=== PATIENT | male | born 1955 | race Caucasian/White ===

== ENCOUNTER 2018-05-19 18:38 | Emergency (ER) | payer OTHER ==
[~2018-05-19] VITALS: Ht 172.7 cm; Wt 86.2 kg
[~2018-05-19 18:38] MED LIST: CIPRO 500MG TA500 MG PO; ECOTRIN81 MG PO; FLAG500 PO; METAMUCIL1 PAC PO; NEXIUM 40MG40 MG PO; NEXIUM20 M1 PO; NORCO 325 MG-51 TAB PO; PHILLIPS' COLO1 EACH PO; PRAVASTATIN SOD20 M1 PO; TAMSULOSIN HCL0.4 M1 PO; TRAMADOL HCL50 M1 PO; VICODIN5-300 PO; ZORVOLEX35 MG PO
--- NOTE | 2018-05-19 20:07 | ED CARDIAC/CP/PALPITATIONS ---
History of Present Illness General Chief Complaint: Chest Pain Stated Complaint: CHEST PAIN Source: patient Exam Limitations: no limitations Vital Signs & Intake/Output Vital Signs & Intake/Output Vital Signs Date Time Temp Pulse Resp B/P B/P Pulse O2 O2 Flow FiO2 Mean Ox Delivery Rate 05/20 0041 97.0 61 18 123/70 98 Room Air 05/19 2236 96.5 64 18 138/78 98 Room Air 05/19 2038 98.5 64 18 154/78 99 05/19 1848 97.8 65 18 153/66 98 Room Air ED Intake and Output 05/20 0000 05/19 1200 Intake Total 0 Output Total Balance 0 Intake, Oral 0 Patient 190 lb Weight Weight Reported by Patient Measurement Method Allergies Coded Allergies: NSAIDS (Non-Steroidal Anti-Inflamma (BLEEDING 07/08/16) Reconcile Medications Aspirin (Ecotrin) 81 MG ECT 1 TAB PO DAILY HEART (Reported) Esomeprazole Magnesium (Nexium) 20 MG CAPSULE.DR 2 CAP PO DAILY ACID REFLUX ( Reported) L Gasseri/B Bifidum/B Longum ([place] acquired by [employer]/[place] Capsule) 1 EACH CAPSULE 1 CAP PO DAILY PROBIOTIC (Reported) Lisinopril 10 MG TABLET 10 MG PO DAILY HTN (Reported) Pravastatin Sodium 20 MG TAB 1 TAB PO DAILY CHOLESTEROL (Reported) Pravastatin Sodium 20 MG TABLET 20 MG PO DAILY HIGH CHOLESTEROL (Reported) Psyllium Hydrophylic Muciloid (Metamucil Packet) (Unknown Strength) POWD.PACK (Unknown Dose) PO DAILY CHOLESTEROL & REGULARITY (Reported) Tamsulosin HCl 0.4 MG CAP.ER.24H 1 CAP PO QHS PROSTATE (Reported) Tramadol HCl 50 MG TABLET 1-2 TAB PO Q6P PRN pain Triage Note: PT STATES HE HAS CHEST DISCOMFORT THAT STARTED 2 DAYS AGO. PT DENIES ANY INJURY. PT DENIES RADIATION OR SOB. Triage Nurses Notes Reviewed? yes Onset: Gradual Duration: day(s): Timing: recent history Quality/Severity: mild, moderate Location: epigastric, lower mid chest Radiation: no radiation Activities at Onset: none HPI: 62 yo gentleman presents with 2 days of mid epigastric and lower central chest discomfort, worse at night. "It feels like reflux." He is now feeling better. Past History Travel History Traveled to [place] past 21 day No Medical History Any Pertinent Medical History? 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 No Review of Systems Review of Systems Constitutional: Reports: no symptoms. EENTM: Reports: no symptoms. Respiratory: Reports: no symptoms. Cardiovascular: Reports: no symptoms. GI: Reports: no symptoms. Genitourinary: Reports: no symptoms. Musculoskeletal: Reports: no symptoms. Skin: Reports: no symptoms. Neurological/Psychological: Reports: no symptoms. Hematologic/Endocrine: Reports: no symptoms. Immunologic/Allergic: Reports: no symptoms. All Other Systems: Reviewed and Negative Physical Exam Physical Exam General Appearance: well developed/nourished, no apparent distress Head: atraumatic, normal appearance Eyes: Bilateral: normal appearance. Ears, Nose, Throat: normal pharynx, normal ENT inspection Neck: normal inspection, supple, full range of motion Respiratory: normal breath sounds, no respiratory distress, right sided parasternal chest wall tenderness to palpation. Cardiovascular: regular rate/rhythm Gastrointestinal: normal bowel sounds, soft, non-tender Back: normal inspection, normal range of motion Extremities: normal inspection Neurologic/Psych: no motor/sensory deficits, awake, alert, oriented x 3 Skin: intact, normal color, warm/dry Core Measures ACS in differential dx? No CVA/TIA Diagnosis No Sepsis Present: No Sepsis Focused Exam Completed? No Progress Differential Diagnosis: gerd, vs other, Plan of Care: Orders Procedure Date/time Status TROPONIN LEVEL 05/19 2340 Complete EKG 05/19 2340 Active TROPONIN LEVEL 05/19 1924 Complete LIPASE 05/19 1924 Complete HEPATIC FUNCTION PANEL 05/19 1924 Complete D-DIMER 05/19 1924 Complete CBC WITHOUT DIFFERENTIAL 05/19 1924 Complete BASIC METABOLIC PANEL 05/19 1924 Complete AMYLASE 05/19 1924 Complete EKG 05/19 183 Active Laboratory Tests 05/19/18 2333: Troponin I < 0.01 05/19/18 2040: Anion Gap 12, Estimated GFR > 60, BUN/Creatinine Ratio 12.7, Glucose 101 H, Calcium 9.7, Total Bilirubin 0.4, Direct Bilirubin 0.2, AST 16 L, ALT 24, Alkaline Phosphatase 69, Troponin I < 0.01, Total Protein 7.3, Albumin 4.3, Amylase 47, Lipase 143, CBC w Diff NO MAN DIFF REQ, RBC 5.06, MCV 87.8, MCH 29.3 , MCHC 33.4, RDW 13.1, MPV 7.7, Gran % 73.4, Lymphocytes % 18.4 L, Monocytes % 6.6, Eosinophils % 1.3, Basophils % 0.3, Absolute Granulocytes 6.6 H, Absolute Lymphocytes 1.7, Absolute Monocytes 0.6, Absolute Eosinophils 0.1, Absolute Basophils 0 05/19/182024: D-Dimer High Sensitivty < 200 Diagnostic Imaging: Viewed by Me: Radiology Read. Discussed w/RAD: Radiology Read. CXR Impression: no acute abnormality, no infiltrates, normal size heart, normal mediastinum, PATIENT: MIKE ROBERTS PRESENT AGE: 62 PATIENT ACCOUNT NO: [id number] : 57 LOCATION: [facility] ORDERING PHYSICIAN: James Doss MD SERVICE DATE: 05/19/18 EXAM TYPE: RAD - XRY- PORTABLE CHEST XRAY EXAMINATION: CHEST 1 VIEW CLINICAL INFORMATION: Chest pain. COMPARISON: 07/08/2016. TECHNIQUE: An AP view of the chest is provided. FINDINGS : The cardiac silhouette is not enlarged. The mediastinal and hilar contours are unremarkable. There are neither pleural effusions nor pneumothoraces. There are no consolidations. The osseous structures are unremarkable. IMPRESSION: No evidence for acute disease. DICTATED BY: Zeke Cuenca MD DATE/TIME DICTATED:2024 MANAGER INTERVENTIONAL:SARA DATE/TIME TRANSCRIBED:05/19/182024 CONFIDENTIAL, DO NOT COPY WITHOUT APPROPRIATE AUTHORIZATION. <Electronically signed in Other Vendor System> SIGNED BY: Zeke Cuenca MD 05/19/182027 Initial ED EKG: normal axis, normal intervals, normal p-waves, normal QRS complex, normal sinus rhythm Repeat EKG: unchanged Departure Departure Disposition: HOME OR SELF CARE Condition: Stable Clinical Impression Primary Impression: Chest pain Secondary Impressions: GERD (gastroesophageal reflux disease) Referrals: Kenyatta CALDWELL,Cristobal Coffey (PCP/Family) Departure Forms: Customer Survey General Discharge Information Comments pt feels well in ED... symptoms most suggestive of gerd... trop/ekg benign x 2... pt safe for discharge. of note, he had a nuclear stress test which was negative by his report. Critical Care Note Critical Care Note Critical Care Time: non-applicable
--- NOTE | 2018-05-19 20:28 | RADIOLOGY REPORT ---
EXAMINATION: CHEST 1 VIEW CLINICAL INFORMATION: Chest pain. COMPARISON: 07/08/2016. TECHNIQUE: An AP view of the chest is provided. FINDINGS: The cardiac silhouette is not enlarged. The mediastinal and hilar contours are unremarkable. There are neither pleural effusions nor pneumothoraces. There are no consolidations. The osseous structures are unremarkable. IMPRESSION: No evidence for acute disease.
[2018-05-19 20:56] LABS: ABSOLUTE BASOPHIL COUNT 0 /CUMM (0.0-0.2); ABSOLUTE EOSINOPHIL COUNT 0.1 /CUMM (0.0-0.7); ABSOLUTE GRANULOCYTE CT 6.6 /CUMM (1.4-6.5); ABSOLUTE LYMPH COUNT 1.7 /CUMM (1.2-3.4); ABSOLUTE MONOCYTE COUNT 0.6 /CUMM (0.10-0.60); BASOPHIL % 0.3 % (0.0-2.0); EOSINOPHIL % 1.3 % (0-5); GRANULOCYTE % 73.4 % (42.2-75.2); HEMATOCRIT 44.4 % (42-52); MEAN CORPUSCULAR HGB 29.3 PG (27.0-31.0); MEAN CORPUSCULAR HGB CONC 33.4 G/DL (33.0-37.0); MEAN CORPUSCULAR VOLUME 87.8 FL (80.0-94.0); MEAN PLATELET VOLUME 7.7 FL (7.4-10.4); PLATELET COUNT 214 /CUMM (130-400); RBC DISTRIBUTION WIDTH 13.1 % (11.5-14.5); RED BLOOD CELL CT 5.06 /CUMM (4.70-6.10)
[2018-05-19] MEDS ORDERED: LISINOPRIL10 M1 PO (22:37)
[2018-05-19] MEDS ORDERED: PRAVASTATIN SOD20 M2 PO (22:38)
[2018-05-20 00:41] VITALS: BP 123/70
== END 2018-05-20 01:00 ==
LOC: ERH 18:38
PROVIDERS: Pediatrics
DX: R07.9 Chest pain, unspecified (principal); K21.9 Gastro-esophageal reflux disease without esophagitis; I10 Essential (primary) hypertension
CPT/HCPCS: 71045; 93005; 93010